=== PATIENT | female | born 1945 | race Caucasian/White ===

== ENCOUNTER 2016-07-31 17:32 | Inpatient (IN) | payer MEDICARE, SELFPAY ==
--- NOTE | ~2016-07-31 | CN ---
Consultation Report [facility] [address] [place]. [address] NAME: EVELINA COBOS : 49 STATUS : ADM IN PAT#: [id number] AGE: 71 ADM/REG DATE : 07/31/16 MR#: [id number] REPORT SERV DATE: 08/01/16 DICTATED BY: MAG MULLER DATE: 08/01/16 REPORT STATUS : Draft TRANSCRIBED BY: MODL DATE: 08/01/16 GI CONSULTATION DATE OF CONSULTATION: REASON FOR CONSULTATION: GI bleeding. HISTORY OF PRESENT ILLNESS: Ms. 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 Ortiz. She had a sigmoid resection with colostomy and Jenniffer's pouch. She had come in with a GI bleed back in February 2016. At that time, seen by Dr. Hoffman. She underwent an EGD and a colonoscopy showing duodenitis, and the colonoscopy showed 2 polyps of 5-20 mm in size at 20 cm from the ostomy entrance site. Hot snare was performed. She also was found to have pandiverticulosis. Rectal pouch was also evaluated. It was felt that this may represent bleeding from the ostomy site. Pathology did show adenomatous polyps. Over the last few days, the patient had noted when cleaning her ostomy, that she had seen some blood only on papers, she usually had used them to clean the ostomy, very little blood in the stool itself. Stool has been brown in color. She denies any nausea, vomiting, or abdominal pain. She had developed some shortness of breath at home also, and she has come in for evaluation. She denies any chills. Has had some low-grade temps and was found to have a right lower lobe infiltrate and a right-sided effusion on chest x-ray. 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 PAST SURGICAL HISTORY: Includes sigmoid resection with colostomy and Jenniffer's pouch. FAMILY HISTORY: Noncontributory. REVIEW OF SYSTEMS: A 10-point review of systems, otherwise negative. HABITS: Remote history of smoking, quit in 2010. No alcohol or drug abuse. MEDICATIONS: Include Tylenol, ProAir, Proventil, Klonopin, Plavix, Cartia, Colace, fluticasone, Lasix, levothyroxine, Lopressor, simvastatin, Protonix, potassium chloride, Pravachol, Spiriva, and warfarin. ALLERGIES: DILAUDID. PHYSICAL EXAMINATION: HEENT: Normocephalic, atraumatic. Extraocular muscles are intact. Consultation Report [facility] [address] [place]. [address] NAME: EVELINA COBOS : 49 STATUS : ADM IN PAT#: [id number] AGE: 71 ADM/REG DATE : 07/31/16 MR#: [id number] REPORT SERV DATE: 08/01/16 DICTATED BY: MAG MULLER DATE: 08/01/16 REPORT STATUS : Draft TRANSCRIBED BY: CHRISTINA DATE: 08/01/16 NECK: Supple. No JVD noted. HEART: Irregular. LUNGS: Clear to auscultation anteriorly without rales or rhonchi. ABDOMEN: Soft. Bowel sounds present. Colostomy noted in the left lower quadrant. Evaluated the colostomy site. On examination, stool appeared brown. On putting finger in the colostomy, there was noted a small amount of fresh blood seen on my gloved finger. EXTREMITIES: No cyanosis, clubbing, or edema. NEUROLOGIC: She is alert, oriented, and answers questions appropriately. LABORATORY DATA: Sodium is 140, potassium 4.2, chloride 104, CO2 is 26, BUN 26, creatinine 1.3. LFTs are normal. White count 6.3, hemoglobin 11, hematocrit 35, platelet count 196. INR is 2.3. IMPRESSION: 1. Pneumonia. 2. Lower GI bleeding, it sounds like a small amount. Her hemoglobin is stable. She is on warfarin and Plavix, most likely irritation at the ostomy site. 3. Slight anemia. 4. Hypocoagulable secondary to anticoagulation. RECOMMENDATION: 1. Monitor H and H. 2. Transfuse as needed. 3. She has had a recent upper and lower GI evaluation. At this point, I would continue her Plavix and hold her warfarin just to be sure her hemoglobin stays stable. Not planning on repeating endoscopies unless she dropped her counts and bleeding becomes more profuse. Currently, it seems to be very minimal. We will follow with you. May resume Inés. PABLITO/OCHOAL Mag Muller M.D. / [id number] CC: MD Kyler Gregory William Andrew
--- NOTE | ~2016-07-31 | DS ---
Discharge Summary [facility] [address] [place]. [address] NAME: EVELINA COBOS : 49 STATUS : DIS IN PAT#: [id number] AGE: 71 ADM/REG DATE : 07/31/16 MR#: [id number] REPORT SERV DATE: 08/04/16 DICTATED BY: JACKIE EAST DATE: 08/03/16 REPORT STATUS : Draft TRANSCRIBED BY: MODL DATE: 08/03/16 ADMISSION DATE: 07/31/2016 DISCHARGE DATE: 08/03/2016 HISTORY OF PRESENT ILLNESS: The patient is a 71-year-old female with a history of hypertension, coronary artery disease, and atrial fibrillation, who presented to the hospital with a complaints of cough, fever, and chills with bleeding around her ostomy. For further details, please refer to H and P dictated by Dr. Rankin on 07/31/2016. I assumed care of the patient today, 08/03/2016. Briefly, the patient presented with the above- mentioned complaint to the emergency room. Preliminary workup noted a positive chest x-ray concerning for pneumonia. The patient was started on IV antibiotics for management of pneumonia. Given blood in her ostomy bag, GI was consulted. Given the patient's significant cardiac history, the patient's heading up machine operator was also consulted to follow the patient along while in hospital. For her pneumonia, the patient responded well to IV antibiotics with resolution of her cough. She has remained afebrile over 48 hours and has responded very well to therapy while here in the hospital. For her GI bleed, given that the patient was on warfarin for management of anticoagulation for her atrial fibrillation, there was concern that likely the etiology of her bleeding might have been due to a supratherapeutic INR. GI was consulted. Per their evaluation, there was no need for an endoscopy during this hospitalization. From GI standpoint, the patient has been cleared for discharge. Per Cardiology evaluation, the patient was taken off warfarin and started on Eliquis. The patient has been cleared by Cardiology. GI currently has no plan for any active intervention. Her bleeding has resolved, as the patient has not had any episodes of further bleeding around her ostomy. Her other chronic medical problems have remained stable. Given her hemodynamic stability, given resolution of her presenting symptoms, and given completion of workup, the patient will be discharged home to follow with primary care physician and GI as outpatient. Plan has been discussed with the patient, who voices understanding and is agreeable with this plan. DISCHARGE DIAGNOSES: 1. Gastrointestinal bleed. 2. Normocytic anemia. 3. Atrial fibrillation. 4. Right lower lobe pneumonia. 5. Coronary artery disease, status post stent placement. 6. Acute kidney injury. 7. Chronic kidney disease stage 3. DISCHARGE EXAM: VITAL SIGNS: Blood pressure 133/59 with a pulse of 78, respirations 20, O2 saturation 92% on room air. GENERAL: The patient lying in bed, in no acute distress. Appears stated age. HEENT: Normocephalic, atraumatic. The patient was wearing a nasal cannula. Oral mucosa moist. NECK: Trachea midline, symmetric. No JVD noted. No thyromegaly present. No lymphadenopathy appreciated. CHEST: Nontender to palpation. Discharge Summary [address] [address] NAME: EVELINA COBOS : 49 STATUS : DIS IN PAT#: [id number] AGE: 71 ADM/REG DATE : 07/31/16 MR#: [id number] REPORT SERV DATE: 08/04/16 DICTATED BY: JACKIE EAST DATE: 08/03/16 REPORT STATUS : Draft TRANSCRIBED BY: CHRISTINA DATE: 08/03/16 CARDIOVASCULAR: Irregularly irregular rate and rhythm. I do not appreciate any murmurs. LUNGS: Clear to auscultation bilaterally. ABDOMEN: Positive bowel sounds. Nontender, nondistended. Ostomy site noted draining nonbloody fecal matter. Tissue appears healthy. EXTREMITIES: No cyanosis, clubbing, or edema. NEURO: Alert and oriented x3. No focal deficits appreciated. CONSULTANTS: Dr. Camarena of Cardiology and Dr. Hoffman of GI. DISCHARGE MEDICATIONS: Clopidogrel 75 mg p.o. daily, diltiazem 120 mg p.o. twice a day, furosemide 20 mg p.o. daily, levothyroxine 50 mcg p.o. daily, metoprolol tartrate 12.5 mg p.o. twice a day, nystatin 5 mg p.o. three times a day, pantoprazole 40 mg p.o. daily, potassium chloride 20 mEq p.o. daily, clonazepam 1 mg p.o. twice a day, Proventil one neb inhalation q.6 hours, tiotropium one cap inhalation daily, Ellipta one puff inhalation daily., atorvastatin 40 mg p.o. daily, Levaquin 750 mg p.o. three times a day. DISPOSITION: The patient will be discharged home. FOLLOWUP: With primary care physician. ACTIVITY: As tolerated. DIET: Cardiac diet. Greater than 30 minutes was spent on chart review, coordinating discharge, dictation of note, medication reconciliation, writing prescription, and coordination of care. PATRICK/CHRISTINA Jackie East MD / [id number] CC: MD JOSEPH Jo
--- NOTE | ~2016-07-31 | HP ---
History And Physical [facility] [id number] [place]. [address] NAME: EVELINA COBOS : 49 STATUS : ADM IN [facility]#: [id number] AGE: 71 ADM/REG DATE : 07/31/16 MR#: [id number] REPORT SERV DATE: 07/31/16 DICTATED BY: DANIEL HARRIS DATE: 07/31/16 REPORT STATUS : Draft TRANSCRIBED BY: MODL DATE: 07/31/16 DATE OF ADMISSION: 07/31/2016 CHIEF COMPLAINT: Cough, fever, and chills along with bleeding bright red blood around the ostomy. HISTORY OF PRESENT ILLNESS: This is a 71-year-old female with a significant past medical history including recurrent GI bleeding; history of colovesicular fistula, status post resection and ostomy done by Dr. Ortiz; history of coronary artery disease with drug eluting stents, on chronic anticoagulation, followed by Dr. Kunal Camarena; and other chronic medical issues as well, who presents to the emergency room at [facility] with the above-mentioned complaint. History is obtained from Mrs. Cobos, her daughter who is at bedside, and review of data available on the [facility] system. According to available data, Mrs. Cobos was in her usual state of health until about five days or so ago when she started having cough productive of greenish yellowish sputum. She also had some fever and chills about three days ago. Around this time, she had noticed that she had some blood in her ostomy bag, and she said this was primarily from around the ostomy itself. It was bright red in color, not maroonish, not associated with any clots. She has had no abdominal pain or any other symptoms. Her daughter who visits her quite often saw her on Tuesday and noticed some of this blood around the ostomy, but they decided to wait and watch. Today again, she noticed the above-mentioned blood and felt that it was more than Tuesday. She also had respiratory symptoms as mentioned above, and today she thought her mother was a little more short of breath than usual. She does have a history of COPD and has been very compliant with the treatment. Given all of the above, her history of respiratory failure in the past, and history of recurrent GI bleeding, they decided to come to the emergency room to have this evaluated. In the emergency room, initial workup did reveal blood around the ostomy, chest x-ray revealed new right lower lobe infiltrate probably consistent with pneumonia. An EKG showed atrial fibrillation although controlled. She does have drug-eluting stents placed by Dr. Kunal Camarena and is currently on warfarin and Plavix. The Hospitalist Service was asked to admit her for further evaluation and treatment. At the time of my evaluation, she denied any chest pain, palpitations, or orthopnea. She did have a cough productive of yellowish greenish sputum. Denied any hemoptysis, night sweats, or weight loss. She has not had any recent falls or loss of consciousness. Denied any nausea, vomiting, or diarrhea. She did have some chills as mentioned above. No history of hematemesis or hematuria. No other history of recent travel or exposures other than those mentioned above. She does have a son who has developmental abnormalities and behavioral health issues who actually stays in a home taken care of by his caregivers around the clock. She does visit this son. PAST MEDICAL HISTORY: Significant for history of coronary artery disease with drug-eluting stents, on chronic anticoagulation; history of colovesicular fistula, status post resection and ostomy creation; history of GI bleeding followed by Dr. Lyle Hoffman; history of History And Physical [address] [address] NAME: EVELINA COBOS : 49 STATUS : ADM IN [facility]#: [id number] AGE: 71 ADM/REG DATE : 07/31/16 MR#: [id number] REPORT SERV DATE: 07/31/16 DICTATED BY: DANIEL HARRIS DATE: 07/31/16 REPORT STATUS : Draft TRANSCRIBED BY: MODJeffery DATE: 07/31/16 atrial fibrillation; COPD; chronic anemia; and hypothyroidism as well. She has a history of nonsustained ventricular tachycardia and hypertrophic cardiomyopathy. She has aortic stenosis and mitral stenosis, essential hypertension, anxiety, and depression as well. SOCIAL HISTORY: She has about a [id number] history of smoking and quit in 2010. She denied alcohol use or recreational drug use. FAMILY HISTORY: Noncontributory. MEDICATIONS: Her medications at home were reviewed by me in the chart today and reordered by me. REVIEW OF SYSTEMS: As in history of present illness. All other systems are reviewed in detail and are quite unremarkable. PHYSICAL EXAMINATION: GENERAL: This is a pleasant 71-year-old, not in any acute distress. HEENT: Head is atraumatic and normocephalic. She is alert, awake, and oriented to time, place, and person. Pupils are equal and reactive to light and accommodating. External ocular muscles are intact. Membranes are moist and pink. Sclerae nonicteric. NECK: Supple with no jugular venous distention, lymphadenopathy, or thyromegaly. LUNGS: Clear to auscultation with no wheezes, rubs, or crackles. HEART: Heart sounds are regular with no murmurs, rubs, or gallops. ABDOMEN: Soft and nontender. Bowel sounds are present. EXTREMITIES: No cyanosis, clubbing, or edema. NEUROLOGIC: Grossly intact. No focal sensory or motor deficits. Higher functions appear intact. She is able to move all four extremities. SKIN: Examination of the skin around the stoma showed some erythema and friable areas. There is some mild bright red blood seen there. There is no blood seen from the ostomy itself. VITAL SIGNS: Vital signs today show a temperature of 98.8, pulse of 87, respirations of 20 a minute, blood pressure is 119/64, and oxygen saturations are 95% on 2 L of oxygen via nasal cannula. LABORATORY DATA: Laboratory data reviewed on the [facility] system showed a sodium of 140, potassium of 4.2, chloride of 104, and CO2 of 26. BUN was 26 with a creatinine of 1.32 and glucose of 82. Her alkaline phosphatase, ALT, and AST were within normal limits. Troponin was 0.02 today. BNP was 258.9. CBC showed a normal white blood cell count, hemoglobin was 12, hematocrit was 37.8, and platelet count was 196,000. Her prothrombin time today was 25.2 with an INR of 2.3. Films of the chest x-ray were reviewed by me on the PACS today, and today's films were compared to prior films available on the PACS as well. Per my interpretation, today's film show normal bony architecture. Lung tabares show mild congestion. There is a new right lower lobe infiltrate and a small right-sided effusion. A 12-lead EKG done in the emergency room was reviewed and interpreted by me. There is atrial fibrillation at a rate of [address] elevations. History And Physical [address] [place]. [address] NAME: EVELINA COBOS : 49 STATUS : ADM IN [facility]#: [id number] AGE: 71 ADM/REG DATE : 07/31/16 MR#: [id number] REPORT SERV DATE: 07/31/16 DICTATED BY: DANIEL HARRIS DATE: 07/31/16 REPORT STATUS : Draft TRANSCRIBED BY: CHRISTINA DATE: 07/31/16 IMPRESSION: 1. Gastrointestinal bleeding into the ostomy bag. 2. Right lower lobe pneumonia. 3. Coronary artery disease with drug-eluting stents, on chronic anticoagulation. 4. Atrial fibrillation with a controlled ventricular response. 5. Chronic obstructive pulmonary disease. 6. Chronic anemia. 7. Hypothyroidism. 8. History of colovesicular fistula, status post resection and colostomy. 9. History of nonsustained ventricular tachycardia. 10.Hypertrophic cardiomyopathy. 11.Aortic stenosis. 12.Mitral stenosis. 13.Essential hypertension. 14.Anxiety and depression. PLAN: We will admit Mrs. Cobos to the Hospitalist Service with telemetry for close monitoring. We will hold her warfarin and Plavix tonight, consult Dr. Camarena in the morning who will decide if this can be continued safely. I do think this may be a bleeding from the stomal area and not upper GI bleeding, but we will, however, keep her n.p.o. for now, start her on a Protonix infusion, type and cross and be ready to transfuse if needed. We will also go ahead and consult her band edger, Dr. Lyle Hoffman, to see her in the morning. Meanwhile, we will follow serial hemoglobin and hematocrit levels. Her atrial fibrillation appears to be stable at this time. We will continue the Cardizem and beta- blockers that she is on. Meanwhile, we will obtain cultures, start her on empiric IV antibiotics. We will continue her bronchodilator treatments and supplemental oxygen therapy. We will also go ahead and check her TSH and continue replacement therapy at this time. We will continue all other medications and treatments at this time and place her on SCDs for DVT prophylaxis while she is here. I have discussed the above plans with the patient and the family. Questions were answered, and they are agreeable to the above recommendations. Further recommendations will be after Dr. Camarena and Dr. Hoffman have had a chance to see her in the morning. Hospitalist Service will be following her during her stay here. /CHRISTINA Daniel Harris M.D. / [id number] CC: MD LYLE Gregory
[~2016-07-31 17:32] MED LIST: ACET500CAP PO; ADVAIR INH; ADVAIR250 INH; AMIT25 PO; AMIT50 PO; ASAB PO; BETAPACE80 PO; BRILINTA90 MG PO; C1 PO; C5 PO; CARDCD120 PO; CARDCD180 PO; CARTIA XT120 MG/24 PO; CARTIA XT240 MG/24 PO; CATARACTIVE OPH; COREG3 PO; COUMADIN6 MG PO; COZ50 PO; DENIES HOME MEDS; DSS PO; HALF81 PO; KLONO1 PO; KLONO5 PO; KLOR-CON M2020 MEQ PO; L20 PO; L40 PO; LEVOTHYROXIN50 MCG PO; LOP25 PO; MICRO-K10 MEQ PO; PLAVIX PO; PRAVACHOL40 MG PO; PRIN10 PO; PROAIR HFA INH; PROTONIX PO; PROVENTSOL INH; RYTHMOL225 MG PO; SPIRIVA INH; SYN.05 PO; TRAZODONE150 MG PO
[2016-07-31 17:54] LABS: INFLUENZA A SCREEN NEGATIVE (NEGATIVE); INFLUENZA B SCREEN NEGATIVE (NEGATIVE)
[2016-07-31 17:56] LABS: INTERNATIONAL NORMAL RATI 2.3 UNITS (-); PARTIAL THROMBO TIME 52.5 SEC (22.5-37.2); PROTIME (NOT ORD) 25.2 SEC (12.0-14.5)
[2016-07-31 18:04] LABS: BASOPHILS 0.3 %; BASOPHILS ABSOLUTE 0.02 10/3/uL (0.0-0.16); EOSINOPHILS 0.3 %; EOSINOPHILS ABSOLUTE 0.02 10/3/uL (0.0-0.53); ER CBC TAT 0 Hrs 21 Mins; HEMATOCRIT 37.8 % (36.0-48.0); IMMATURE GRANULOCYTES 0.2 %; IMMATURE GRANULOCYTES ABSOLUTE 0.01 10/3/uL (0.0-0.11); LYMPHOCYTES ABSOLUTE 0.88 10/3/uL (0.67-4.30); MEAN CORPUS HGB CONC 31.7 g/dL (32.0-36.0); MEAN PLATELET VOLUME 10.6 fL (9.2-13.0); MONOCYTES 4.1 %; MONOCYTES ABSOLUTE 0.26 10/3/uL (0.21-1.20); NEUTROPHILS 81.1 %; NEUTROPHILS ABSOLUTE 5.11 10/3/uL (2.02-8.40); PLATELET COUNT 196 10/3/uL (150-400); RBC DISTRIBUTION WIDTH 19.7 % (12.0-16.0); WHITE BLOOD CELLS 6.3 10/3/uL (4.5-10.5)
[2016-07-31 18:05] LABS: ALBUMIN 3.4 G/DL (3.5-5.0); CALCIUM, SERUM 8.2 MG/DL (8.5-10.4); CHLORIDE, SERUM 104 MMOL/L (96-112); CREATININE 1.32 MG/DL (0.55-1.02); GFR AFRICAN AMERICAN 48 ML/MIN (>=60); GFR NON AFRICAN AMERICAN 41 ML/MIN (>=60); GLOBULIN 3.4 G/DL (2.5-4.1); GLUCOSE, SERUM 82 MG/DL (60-99); MANUAL DIFF NO %; MEAN CORPUSCULAR HEMOGLOB 26.9 pg (26.0-34.0); MEAN CORPUSCULAR VOLUME 84.8 fL (80-100); POTASSIUM, SERUM 4.2 MMOL/L (3.5-5.3); RED CELL COUNT 4.46 10/6/uL (4.0-5.6); SGOT(AST) 13 U/L (5-40); SGPT(ALT) 13 U/L (5-65); SODIUM, SERUM 140 MMOL/L (135-148); TOTAL BILIRUBIN 0.5 MG/DL (0-1.2); TOTAL PROTEIN 6.8 G/DL (6.0-8.5); TROPONIN I 0.02 NG/ML (<0.05)
[2016-07-31 18:06] LABS: ALKALINE PHOSPHATASE 107 U/L (45-117); BUN (BLOOD UREA NITROGEN) 26 MG/DL (6-23); CO2 (CARBON DIOXIDE) 26 MMOL/L (24-34)
[2016-07-31 18:25] LABS: ASCORBIC ACID (UR NOT ORDER) 20 (NEG); BILIRUBIN, URINE NEGATIVE (NEG); ER URINALYSIS TAT 0 Hrs 19 Mins; KETONE, URINE NEGATIVE (NEG); LEUKOCYTE ESTERASE(NOT OR SMALL (NEG); NITRITE (URINE) POS (NEG); WBC (NOT ORDERED) (RFLEX) 6 (0-5)
[2016-07-31] MEDS ORDERED: NYS500UDL PO (19:53)
[2016-07-31] MEDS ORDERED: BREO ELLIPTA INH (19:53)
[2016-08-01 00:59] LABS: HEMATOCRIT 35.3 % (36.0-48.0); HEMOGLOBIN 11.1 g/dL (12.0-16.0)
[2016-08-01 12:31] LABS: BASOPHILS 0.2 %; BASOPHILS ABSOLUTE 0.01 10/3/uL (0.0-0.16); EOSINOPHILS 0.9 %; EOSINOPHILS ABSOLUTE 0.04 10/3/uL (0.0-0.53); HEMATOCRIT 34.2 % (36.0-48.0); HEMOGLOBIN 11.1 g/dL (12.0-16.0); IMMATURE GRANULOCYTES 0.2 %; IMMATURE GRANULOCYTES ABSOLUTE 0.01 10/3/uL (0.0-0.11); LYMPHOCYTES ABSOLUTE 0.51 10/3/uL (0.67-4.30); MANUAL DIFF NO %; MEAN CORPUS HGB CONC 32.5 g/dL (32.0-36.0); MEAN CORPUSCULAR HEMOGLOB 27.8 pg (26.0-34.0); MEAN CORPUSCULAR VOLUME 85.7 fL (80-100); MEAN PLATELET VOLUME 9.5 fL (9.2-13.0); MONOCYTES 3.5 %; MONOCYTES ABSOLUTE 0.15 10/3/uL (0.21-1.20); NEUTROPHILS 83.2 %; NEUTROPHILS ABSOLUTE 3.53 10/3/uL (2.02-8.40); PLATELET COUNT 142 10/3/uL (150-400); RBC DISTRIBUTION WIDTH 19.4 % (12.0-16.0); RED CELL COUNT 3.99 10/6/uL (4.0-5.6); WHITE BLOOD CELLS 4.3 10/3/uL (4.5-10.5)
[2016-08-01 12:54] LABS: CALCIUM, SERUM 7.9 MG/DL (8.5-10.4); CHLORIDE, SERUM 110 MMOL/L (96-112); CO2 (CARBON DIOXIDE) 27 MMOL/L (24-34); GFR AFRICAN AMERICAN 53 ML/MIN (>=60); GFR NON AFRICAN AMERICAN 46 ML/MIN (>=60); POTASSIUM, SERUM 3.9 MMOL/L (3.5-5.3); SODIUM, SERUM 144 MMOL/L (135-148)
[2016-08-01 12:58] LABS: BUN (BLOOD UREA NITROGEN) 22 MG/DL (6-23); GLUCOSE, SERUM 135 MG/DL (60-99)
[2016-08-01 13:14] LABS: PROCALCITONIN <0.05 ng/mL (<0.5)
[2016-08-02 00:46] LABS: HEMATOCRIT 32.1 % (36.0-48.0); HEMOGLOBIN 10.2 g/dL (12.0-16.0)
[2016-08-02 04:37] LABS: BASOPHILS 0.2 %; BASOPHILS ABSOLUTE 0.01 10/3/uL (0.0-0.16); EOSINOPHILS 1.6 %; EOSINOPHILS ABSOLUTE 0.07 10/3/uL (0.0-0.53); HEMATOCRIT 33.8 % (36.0-48.0); HEMOGLOBIN 10.4 g/dL (12.0-16.0); IMMATURE GRANULOCYTES 0.2 %; IMMATURE GRANULOCYTES ABSOLUTE 0.01 10/3/uL (0.0-0.11); LYMPHOCYTES 18.5 %; LYMPHOCYTES ABSOLUTE 0.81 10/3/uL (0.67-4.30); MEAN CORPUSCULAR HEMOGLOB 26.4 pg (26.0-34.0); MEAN CORPUSCULAR VOLUME 85.8 fL (80-100); MEAN PLATELET VOLUME 9.8 fL (9.2-13.0); MONOCYTES ABSOLUTE 0.22 10/3/uL (0.21-1.20); NEUTROPHILS 74.5 %; NEUTROPHILS ABSOLUTE 3.27 10/3/uL (2.02-8.40); PLATELET COUNT 166 10/3/uL (150-400); RBC DISTRIBUTION WIDTH 19.3 % (12.0-16.0); RED CELL COUNT 3.94 10/6/uL (4.0-5.6); WHITE BLOOD CELLS 4.4 10/3/uL (4.5-10.5)
[2016-08-02 04:44] LABS: INTERNATIONAL NORMAL RATI 2.5 UNITS (-); PROTIME (NOT ORD) 26.5 SEC (12.0-14.5)
[2016-08-02 04:50] LABS: BUN (BLOOD UREA NITROGEN) 19 MG/DL (6-23); CHLORIDE, SERUM 110 MMOL/L (96-112); CO2 (CARBON DIOXIDE) 26 MMOL/L (24-34); CREATININE 1.16 MG/DL (0.55-1.02); GFR AFRICAN AMERICAN 56 ML/MIN (>=60); GFR NON AFRICAN AMERICAN 48 ML/MIN (>=60); POTASSIUM, SERUM 3.8 MMOL/L (3.5-5.3); SODIUM, SERUM 145 MMOL/L (135-148)
[2016-08-02 04:51] LABS: MANUAL DIFF NO %; MEAN CORPUS HGB CONC 30.8 g/dL (32.0-36.0)
[2016-08-02 04:52] LABS: GLUCOSE, SERUM 104 MG/DL (60-99)
[2016-08-02 08:41] LABS: HEMOGLOBIN 10.5 g/dL (12.0-16.0)
[2016-08-02 16:59] LABS: ASCORBIC ACID (UR NOT ORDER) NEG (NEG); BILIRUBIN, URINE NEGATIVE (NEG); KETONE, URINE NEGATIVE (NEG); LEUKOCYTE ESTERASE(NOT OR NEG (NEG); WBC (NOT ORDERED) (RFLEX) < 1 (0-5)
[2016-08-02 18:15] LABS: HEMATOCRIT 34.2 % (36.0-48.0); HEMOGLOBIN 10.6 g/dL (12.0-16.0)
[2016-08-03 06:41] LABS: HEMATOCRIT 34.7 % (36.0-48.0); HEMOGLOBIN 10.8 g/dL (12.0-16.0)
[2016-08-03 06:43] LABS: BASOPHILS 0.2 %; BASOPHILS ABSOLUTE 0.01 10/3/uL (0.0-0.16); EOSINOPHILS 2.4 %; EOSINOPHILS ABSOLUTE 0.11 10/3/uL (0.0-0.53); HEMATOCRIT 35.1 % (36.0-48.0); HEMOGLOBIN 10.9 g/dL (12.0-16.0); IMMATURE GRANULOCYTES 0.4 %; IMMATURE GRANULOCYTES ABSOLUTE 0.02 10/3/uL (0.0-0.11); LYMPHOCYTES 15.8 %; LYMPHOCYTES ABSOLUTE 0.71 10/3/uL (0.67-4.30); MANUAL DIFF NO %; MEAN CORPUS HGB CONC 31.1 g/dL (32.0-36.0); MEAN CORPUSCULAR VOLUME 87.1 fL (80-100); MEAN PLATELET VOLUME 10.2 fL (9.2-13.0); MONOCYTES 5.3 %; MONOCYTES ABSOLUTE 0.24 10/3/uL (0.21-1.20); NEUTROPHILS 75.9 %; PLATELET COUNT 184 10/3/uL (150-400); RBC DISTRIBUTION WIDTH 19.3 % (12.0-16.0); RED CELL COUNT 4.03 10/6/uL (4.0-5.6); WHITE BLOOD CELLS 4.5 10/3/uL (4.5-10.5)
[2016-08-03 06:48] LABS: INTERNATIONAL NORMAL RATI 2.4 UNITS (-); PROTIME (NOT ORD) 25.7 SEC (12.0-14.5)
[2016-08-03 06:55] LABS: BUN (BLOOD UREA NITROGEN) 19 MG/DL (6-23); CALCIUM, SERUM 8.4 MG/DL (8.5-10.4); CHLORIDE, SERUM 110 MMOL/L (96-112); CO2 (CARBON DIOXIDE) 26 MMOL/L (24-34); CREATININE 1.06 MG/DL (0.55-1.02); GFR AFRICAN AMERICAN 62 ML/MIN (>=60); GFR NON AFRICAN AMERICAN 54 ML/MIN (>=60); GLUCOSE, SERUM 93 MG/DL (60-99); SODIUM, SERUM 145 MMOL/L (135-148)
[2016-08-03] MEDS ORDERED: ELIQUIS 5 MG TAB5 MG PO (15:59)
[2016-08-03] MEDS ORDERED: LEVAQUIN750 MG PO (15:59)
[2016-08-03] MEDS ORDERED: LIPITOR40 PO (16:00)
[2016-08-03] MEDS ORDERED: CARTIA XT120 MG/24 PO (16:07)
[2017-01-15] MEDS ORDERED: PRAVACHOL40 MG PO (22:44)
[2017-01-15] MEDS ORDERED: PROTONIX PO (22:44)
[2017-01-15] MEDS ORDERED: LEVOTHYROXIN50 MCG PO (22:44)
[2017-01-15] MEDS ORDERED: DSS PO (22:45)
[2017-01-15] MEDS ORDERED: PLAVIX PO (22:45)
[2017-01-15] MEDS ORDERED: KLONO1 PO (22:45)
[2017-01-15] MEDS ORDERED: OCEAN NAS (22:46)
[2017-01-15] MEDS ORDERED: LOP25 PO (22:46)
[2017-01-15] MEDS ORDERED: CARTIA XT120 MG/24 PO (22:46)
[2017-01-15] MEDS ORDERED: ELIQUIS 5 MG TAB5 MG PO (22:47)
[2017-01-15] MEDS ORDERED: L20 PO (22:47)
[2017-01-15] MEDS ORDERED: KLOR-CON M2020 MEQ PO (22:47)
[2017-01-15] MEDS ORDERED: SPIRIVA INH (22:48)
[2017-01-15] MEDS ORDERED: BREO ELLIPTA INH (22:48)
[2017-01-15] MEDS ORDERED: PROVHFA INH (22:48)
[2017-01-15] MEDS ORDERED: ALBUTEROL0.083 % INH ×2 (22:48)
[2017-01-15] MEDS ORDERED: NYS500UDL PO (22:49)
[2017-01-15] MEDS ORDERED: ACET500CAP PO (22:49)
[2017-01-18] MEDS ORDERED: LEVAQUIN750 MG PO (15:59)
[2017-01-18] MEDS ORDERED: MUCINEX600 MG PO (16:00)
[2017-01-18] MEDS ORDERED: P10 PO (16:06)
== END 2016-08-03 19:59 | disposition home or self-care (01) | DRG 393 ==
LOC: ER 17:32 → 2SO 20:44
PROVIDERS: Emergency Medicine; Hospitalist; Internal Medicine Gastroenterology; Internal Medicine Pulmonary Disease; Nurse Practitioner Family
DX: K94.01 Colostomy hemorrhage (principal); J18.9 Pneumonia, unspecified organism; N17.9 Acute kidney failure, unspecified; I48.91 Unspecified atrial fibrillation; D62 Acute posthemorrhagic anemia; J44.9 Chronic obstructive pulmonary disease, unspecified; N18.3 Chronic kidney disease, stage 3 (moderate); I42.2 Other hypertrophic cardiomyopathy; T45.7X5A Adverse effect of anticoagulant antagonists, vitamin K and other coagulants, initial encounter; I25.10 Atherosclerotic heart disease of native coronary artery without angina pectoris; D50.9 Iron deficiency anemia, unspecified; E03.9 Hypothyroidism, unspecified; I12.9 Hypertensive chronic kidney disease with stage 1 through stage 4 chronic kidney disease, or unspecified chronic kidney disease; I35.0 Nonrheumatic aortic (valve) stenosis; I34.2 Nonrheumatic mitral (valve) stenosis; F32.9 Major depressive disorder, single episode, unspecified; F41.9 Anxiety disorder, unspecified; Z88.5 Allergy status to narcotic agent; Z95.5 Presence of coronary angioplasty implant and graft; Z90.49 Acquired absence of other specified parts of digestive tract; Z79.01 Long term (current) use of anticoagulants; Z86.010 Personal history of colon polyps
CPT/HCPCS: 36415; 71010; 80048; 80053; 81001; 83605; 83735; 83880; 84100; 84145; 84443; 84484; 85014; 85018; 85025; 85610; 85730; 86850; 86900; 86901; 87040; 87077; 87086; 87186; 87205; 87449; 87804; 93005; 94640; 96365; 99285; A9270-GY; C9113; J0456; J1956